=== PATIENT | female | born 1995 | race Caucasian/White ===

== ENCOUNTER 2017-02-08 02:44 | Emergency (ER) | payer OTHER ==
[~2017-02-08 02:44] MED LIST: ATV/1 PO; CITA20TA9 PO
[2017-02-08 02:50] VITALS: TEMP 36.6
[2017-02-08 03:35] LABS: MEAN CORPUSCULAR HGB CONC 34.4 g/dl (32-36); MEAN PLATELET VOLUME 9.8 fL (7.4-10.4); PLATELET COUNT 268 K/uL (130-400); RED BLOOD COUNT 4.14 M/uL (4.2-5.4); WHITE BLOOD COUNT 6.23 K/uL (4.8-10.8)
[2017-02-08 03:53] LABS: ALT/SGPT 20 U/L (12-78); AST/SGOT 15 U/L (15-37); BLOOD UREA NITROGEN 12 mg/dl (7-18); BUN/CREATININE RATIO 12.8 (10-20); CARBON DIOXIDE 27 mmol/L (21-32); CHLORIDE 108 mmol/L (98-107); CREATININE 0.93 mg/dl (0.60-1.20); GLUCOSE 79 mg/dl (70-99); POTASSIUM 3.6 mmol/L (3.5-5.1); SODIUM 144 mmol/L (136-145)
[2017-02-08 03:55] LABS: ACETAMINOPHEN < 2 ug/ml (10-30)
[2017-02-08 04:04] LABS: ALKALINE PHOSPHATASE 57 U/L (45-117)
[2017-02-08] MEDS ORDERED: CITA20TA9 PO ×2 (05:14→05:57)
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
[2017-02-08 13:20] VITALS: BP 100/63; PULSE 73; O2SAT 97
== END 2017-02-08 13:20 | disposition home or self-care (01) ==
LOC: EDBD 02:44 → C.EDA 02:51
DX: F41.9 Anxiety disorder, unspecified (principal); Z91.14 Patient's other noncompliance with medication regimen; Z81.8 Family history of other mental and behavioral disorders; Z79.899 Other long term (current) drug therapy